=== PATIENT | female | born 1960 | race Caucasian/White ===

== ENCOUNTER 2017-05-07 13:28 | Emergency (ER) | payer MEDICARE, MEDICAID ==
--- NOTE | 2017-05-07 13:52 | EDM.PDOC ---
ED HPI GENERAL MEDICAL PROBLEM - General Chief Complaint: Cardiovascular Problem Stated Complaint: HIGH BLOOD PRESSURE Time Seen by Provider: 05/07/17 13:50 Source of Information: Reports: Patient - History of Present Illness INITIAL COMMENTS - FREE TEXT/NARRATIVE: Patient is ultimately here today for evaluation of dizziness which she states that going on several days. She describes it as an abnormal feeling, not so much of vertigo or lightheadedness feeling. She denies any chest pain or dyspnea. Denies N/V/D. Denies current headache, though does have history of migraine headaches. She denies any change in diet or stress in the past few days though she is fairly stressed that she is taking care of 3 children for a friend and apparently the mother is getting out of [facility]pc next month is why she moved to [place] from [place]. Patient reports that she does have chronic pain and arthritis, she travels back to see her pain provider in [place] monthly. She is currently on morphine 30 mg 4 times a day as well as hydrocodone 10-325mg 6 times daily for this. Patient states that she is on metoprolol for her blood pressure, denies any cardiac history of [place] or arrhythmias. She has not been taking her metoprolol for the past week and she has been out. Patient does not have a local PCP. Patient also reports a significant history of depression and anxiety and is requesting referrals to pain management and psychiatry. - Related Data Allergies Allergy/AdvReac Type Severity Reaction Status Date / Time eletriptan [From Relpax] Allergy Anaphylactic Verified 05/07/17 13:44 Shock ketorolac [From Toradol] Allergy Difficulty Verified 05/07/17 13:44 Breathing oxycodone Allergy Hives Verified 05/07/17 13:44 quetiapine [From Seroquel] Allergy Drowsiness Verified 05/07/17 13:44 sumatriptan [From Imitrex] Allergy Anaphylactic Verified 05/07/17 13:44 Shock tramadol Allergy Difficulty Verified 05/07/17 13:44 Breathing Home Meds: Home Meds Citalopram [Citalopram HBr] 40 mg PO DAILY 05/07/17 [History] ClonazePAM [KlonoPIN] 0.5 mg PO QID PRN 05/07/17 [History] Hydrocodone/Acetaminophen [[place] 10-325 Tablet] 1 each PO Q4H 05/07/17 [History] Metoprolol Succinate 100 mg PO DAILY 05/07/17 [History] Metoprolol Succinate [Toprol XL 100mg] 100 mg PO DAILY #30 tab.er 05/07/17 [Rx] Morphine Sulfate [Morphine Sulfate ER] 30 mg PO Q4H 05/07/17 [History] Past Medical History Cardiovascular History: Reports: Hypertension Gastrointestinal History: Reports: Chronic Diarrhea Musculoskeletal History: Reports: Arthritis, Back Pain, Chronic, Fracture, Osteoarthritis - Past Surgical History GI Surgical History: Reports: Colonoscopy Musculoskeletal Surgical History: Reports: ORIF Social & Family History - Tobacco Use Smoking Status *Q: Current Every Day Smoker Years of Tobacco use: 35 Packs/Tins Daily: 0.5 - Caffeine Use Caffeine Use: Reports: Soda - Recreational Drug Use Recreational Drug Use: No ED ROS GENERAL - Review of Systems Review Of Systems: See Below Constitutional: Reports: Fatigue. Denies: Fever, Chills, Malaise, Weakness, Decreased Appetite HEENT: Denies: Ear Pain, Sinus Problem, Vision Change Respiratory: Reports: No Symptoms Cardiovascular: Reports: No Symptoms GI/Abdominal: Reports: No Symptoms Musculoskeletal: Reports: Other (Chronic pain of multiple joints.) Skin: Reports: No Symptoms Neurological: Reports: Dizziness. Denies: Confusion, Headache, Numbness, Seizure, Tingling, Weakness Psychiatric: Reports: Anxiety, Depression ED EXAM, GENERAL - Physical Exam Exam: See Below General Appearance: No Apparent Distress, Lethargic, Other (Appears older than stated age. ) Eye Exam: Bilateral Eye: Other (Pinpoint pupils, not reactive to light. ) Ears: Normal External Exam, Normal Canal, Normal TMs Throat/Mouth: Normal Inspection, Normal Oropharynx Head: Atraumatic, Normocephalic Neck: Normal Inspection, Supple, Non-Tender Respiratory/Chest: No Respiratory Distress, Lungs Clear Cardiovascular: Normal Peripheral Pulses, Regular Rate, Rhythm, No Murmur Peripheral Pulses: 2+: Radial (L), Radial (R), Posterior Tibial (L), Posterior Tibial (R) GI/Abdominal: Normal Bowel Sounds, Soft Neurological: Oriented, No Motor/Sensory Deficits, Slow to Respond, Other ( Keeps eyes closed for majority of exam.) Psychiatric: Flat Affect. No: Normal Affect, Normal Mood Skin Exam: Warm, Dry, Intact Course - Vital Signs Last Recorded V/S: Last Vital Signs Temp 97.1 F 05/07/17 13:37 Pulse 93 05/07/17 13:37 Resp 17 05/07/17 13:37 BP 157/96 H 05/07/17 13:37 Pulse Ox 95 05/07/17 13:37 - Orders/Labs/Meds Orders: Active Orders 24 hr Category Date Time Status EKG 12 Lead [EKG Documentation Completion] [RC] STAT Care 05/07/17 14:11 Active DRUG SCREEN, URINE [URCHEM] Stat Lab 05/07/17 14:11 Ordered Labs: Laboratory Tests 05/07/17 05/07/17 Range/Units 14:44 14:44 WBC 6.92 (3.98-10.04) K/mm3 RBC 6.32 H (3.98-5.22) M/mm3 Hgb 16.9 H (11.2-15.7) gm/L Hct 49.1 H (34.1-44.9) % MCV 77.7 L (79.4-94.8) fl MCH 26.7 (25.6-32.2) pg MCHC 34.4 (32.2-35.5) g/dl RDW Std Deviation 51.5 H (36.4-46.3) fL Plt Count 105 L (182-369) K/mm3 MPV 10.1 (9.4-12.3) fl Neutrophils % (Manual) 51 (40-60) % Band Neutrophils % 0 (0-10) % Lymphocytes % (Manual) 40 (20-40) % Atypical Lymphs % 0 % Monocytes % (Manual) 8 (2-10) % Eosinophils % (Manual) 0 L (0.7-5.8) % Basophils % (Manual) 1 (0.1-1.2) Platelet Estimate Decreased Plt Morphology Comment Normal Poikilocytosis 1+ slight Anisocytosis 1+ slight Microcytosis 1+ slight Macrocytosis 1+ slight Tear Drop Cells 1+ slight RBC Morph Comment Abnormal Sodium 135 L (136-145) mEq/L Potassium 4.4 (3.5-5.1) mEq/L Chloride 98 (98-107) mEq/L Carbon Dioxide 27 (21-32) mEq/L Anion Gap 14.4 (5-15) BUN 17 (7-18) mg/dL Creatinine 1.1 H (0.55-1.02) mg/dL Est Cr Clr Drug Dosing 46.11 mL/min Estimated GFR (MDRD) 51 (>60) mL/min BUN/Creatinine Ratio 15.5 (14-18) Glucose 92 (74-106) mg/dL Calcium 9.3 (8.5-10.1) mg/dL Total Bilirubin 0.5 (0.2-1.0) mg/dL AST 57 H (15-37) U/L ALT 37 (14-59) U/L Alkaline Phosphatase 119 H (46-116) U/L Total Protein 7.9 (6.4-8.2) g/dl Albumin < 0.6 L (3.4-5.0) g/dl Globulin 7.3 gm/dL Albumin/Globulin Ratio 0.1 L (1-2) TSH 3rd Generation 2.200 (0.358-3.74) uIU/mL Ethyl Alcohol 0.00 (0.00) gm% Meds: Medications Discontinued Medications Generic Name Dose Route Start Last Admin Trade Name Deniq PRN Reason Stop Dose Admin Promethazine HCl 25 mg 05/07/17 16:50 Phenergan IM 05/07/17 16:51 ONETIME ONE - Re-Assessments/Exams Free Text/Narrative Re-Assessment/Exam: Patient with essentially normal neurologic exam. Her initial complaint was dizziness but this resolved after lying down for a few minutes. Patient is on a significant amount of necrotic pain medication on an outpatient basis and I suspect that this is contributing as well to his dizziness symptoms. Phenergan was given for her nausea. CBC demonstrates increased RBC and hemoglobin. AST 57, ALT 37 and alkaline phosphatase 119. TSH is normal at 2.20. Alcohol was negative. Drug screen is pending. Patient is requesting to be discharged, do not see indication to make her stay. Patient will need to establish with a PCP to further discuss her chronic pain management and fulfill her requested referrals. Will refill her metoprolol but not her pain medication as I do not feel this is indicated in the emergency room setting. 05/07/17 16:53 Departure - Departure Time of Disposition: 16:55 Disposition: Home, Self-Care 01 Condition: Fair Clinical Impression: Dizziness, Nausea Hypertension Qualifiers: Hypertension type: essential hypertension Qualified Code(s): I10 - Essential ( primary) hypertension Chronic pain Qualifiers: Chronic pain type: other chronic pain Qualified Code(s): G89.29 - Other chronic pain Prescriptions: Metoprolol Succinate [Toprol XL 100mg] 100 mg PO DAILY #30 tab.er Referrals: PCP,Not In Area [Primary Care Provider] - Forms: ED Department Discharge - My Orders Last 24 Hours: My Active Orders 05/07/17 14:11 EKG 12 Lead [EKG Documentation Completion] [RC] STAT DRUG SCREEN, URINE [URCHEM] Stat - Assessment/Plan Last 24 Hours: My Active Orders 05/07/17 14:11 EKG 12 Lead [EKG Documentation Completion] [RC] STAT DRUG SCREEN, URINE [URCHEM] Stat
[2017-05-07] MEDS ORDERED: Promethazine 25 MG/ML SDV IM ONE (16:50)
== END 2017-05-07 17:08 | disposition home or self-care (01) ==
LOC: JD.ED 13:28
DX: I10 Essential (primary) hypertension (principal); G89.29 Other chronic pain; M19.90 Unspecified osteoarthritis, unspecified site; Z79.899 Other long term (current) drug therapy; Z88.6 Allergy status to analgesic agent; Z88.8 Allergy status to other drugs, medicaments and biological substances; Z88.5 Allergy status to narcotic agent
CPT/HCPCS: 36415; 80053; 84443; 85025; 93005; 96372; 99284; G0480; J2550; 99283

== ENCOUNTER 2018-05-22 07:52 | Day surgery (SDC) | payer MEDICARE, MEDICAID ==
[~2018-05-22 07:52] MED LIST: Lactated Ringers 1,000 ML IV SCH; Lidocaine 1% 4 ML ONE; Lidocaine 1%/Sod Bicarbonate in NS 8.4% 1 ML Syringe IDERM PRN; Midazolam 1 MG/ML 2 ML SDV ONE; Propofol 200 MG/20 ML SDV ONE; Sodium Chloride 0.9% 10 ML Syringe FLUSH PRN; fentaNYL 100 MCG/2 ML SDV ONE
--- NOTE | 2018-05-22 08:21 | PCM.PREANE ---
Preanesthetic Assessment - Anesthesia/Transfusion/Family Hx Anesthesia History: Prior Anesthesia Without Reaction Family History of Anesthesia Reaction: No Transfusion History: No Prior Transfusion(s) - Review of Systems General: Fatigue Pulmonary: Cough Cardiovascular: Dyspnea on Exertion Gastrointestinal: Nausea Neurological: No Symptoms Other: Reports: Easy Bruising, Anxiety - Physical Assessment NPO Status Date: 05/21/18 NPO Status Time: 00:00 Pulse: 66 O2 Sat by Pulse Oximetry: 97 Respiratory Rate: 16 Blood Pressure: 160/73 Temperature: 36.3 C Height: 1.6 m Weight: 73.21 kg ASA Class: 2 Mental Status: Alert & Oriented x3 Dentition: Reports: Dentures (to), Missing Tooth/Teeth Thyro-Mental Finger Breadths: 3 Mouth Opening Finger Breadths: 3 ROM/Head Extension: Full Lungs: Clear to Auscultation (right), Wheezing (left lower) Cardiovascular: Regular Rate, Regular Rhythm - Allergies Allergies/Adverse Reactions: Allergies Allergy/AdvReac Type Severity Reaction Status Date / Time ketorolac [From Toradol] Allergy Difficulty Verified 05/21/18 12:16 Breathing oxycodone Allergy Hives Verified 05/21/18 12:16 sumatriptan [From Imitrex] Allergy Anaphylactic Verified 05/21/18 12:16 Shock tramadol Allergy Difficulty Verified 05/21/18 12:16 Breathing quetiapine [From Seroquel] AdvReac Drowsiness Verified 05/21/18 12:16 - Anesthesia Plan Pre-Op Medication Ordered: Beta Leisa Beta Leisa: Metoprolol Med Last Dose Date: 05/21/18 Med Last Dose Time: 16:00 - Acknowledgements Anesthesia Type Planned: MAC Pt an Appropriate Candidate for the Planned Anesthesia: Yes Alternatives and Risks of Anesthesia Discussed w Pt/Guardian: Yes Pt/Guardian Understands and Agrees with Anesthesia Plan: Yes PreAnesthesia Questionnaire HEENT History: Reports: Impaired Vision Other HEENT History: wears contacts Cardiovascular History: Reports: Hypertension, Pulmonary Hypertension Respiratory History: Reports: Pneumonia, Recurrent Other Respiratory History: Unable to verify/obtain. Pt intubated on arrival Gastrointestinal History: Reports: Colon Polyp Other Gastrointestinal History: Unable to verify/obtain. Pt intubated on arrival Genitourinary History: Reports: Pyelonephritis Other Genitourinary History: Unable to verify/obtain. Pt intubated on arrival DRIVER EXAMINER History: Reports: Endometriosis, Other OB/BYN History: Unable to verify/obtain. Pt intubated on arrival Musculoskeletal History: Reports: Back Pain, Chronic, Fracture, Osteoarthritis Other Musculoskeletal History: Unable to verify/obtain. Pt intubated on arrival Neurological History: Reports: Migraines Other Neuro History: Unable to verify/obtain. Pt intubated on arrival Psychiatric History: Reports: Addiction, Anxiety, Depression Other Psychiatric History: Unable to verify/obtain. Pt intubated on arrival Endocrine/Metabolic History: Reports: Other (See Below) Other Endocrine/Metabolic History: "lump" on thyroid. Hematologic History: Reports: Blood Transfusion(s) Other Hematologic History: Unable to verify/obtain. Pt intubated on arrival. Pt states that she has hepatitis but not sure what kind Other Immunologic History: Unable to verify/obtain. Pt intubated on arrival Oncologic (Cancer) History: Reports: Uterine Other Oncologic History: "pre cancer." Other Dermatologic History: Unable to verify/obtain. Pt intubated on arrival - Infectious Disease History Infectious Disease History: Reports: Hepatitis C - Past Surgical History HEENT Surgical History: Reports: Oral Surgery Other HEENT Surgeries/Procedures: Unable to verify/obtain. Pt intubated on arrival GI Surgical History: Reports: Colonoscopy, EGD Female Surgical History: Reports: Hysterectomy, Salpingo-Oophorectomy Musculoskeletal Surgical History: Reports: Arthroscopic Knee, ORIF - SUBSTANCE USE Smoking Status *Q: Current Every Day Smoker Tobacco Use Within Last Twelve Months: Cigarettes Second Hand Smoke Exposure: Yes Days Per Week of Alcohol Use: 0 Number of Drinks Per Day: 0 Total Drinks Per Week: 0 Recreational Drug Use History: No - HOME MEDS Home Medications: Home Meds Metoprolol Succinate [Toprol XL 100mg] 100 mg PO DAILY #30 tab.er 05/07/17 [Rx] Escitalopram [Lexapro] 20 mg PO BID 01/11/18 [History] Aspirin 81 mg PO DAILY 02/09/18 [History] Lisinopril 40 mg PO DAILY 02/09/18 [History] lamoTRIgine [Lamotrigine] 200 mg PO DAILY 02/09/18 [History] Pregabalin [Lyrica] 150 mg PO TID 04/14/18 [History] amLODIPine Besylate [Amlodipine Besylate] 10 mg PO DAILY 04/14/18 [History] clonazePAM [Clonazepam] 0 mg PO BID PRN 04/14/18 [History] hydroCHLOROthiazide [Hydrochlorothiazide] 25 mg PO DAILY 04/14/18 [History] - CURRENT (IN HOUSE) MEDS Current Meds: Current Medications Lactated Ringer's (Ringers, Lactated) 1,000 mls @ 125 mls/hr IV ASDIRECTED LOU Stop: 05/22/18 23:00 Lidocaine/Sodium Bicarbonate (Buffered Lidocaine 1% In Ns 8.4%) 0.25 ml IDERM ONETIME PRN PRN Reason: Prior to IV Start Stop: 05/22/18 18:00 Sodium Chloride (Saline Flush) 10 ml FLUSH ASDIRECTED PRN PRN Reason: Keep Vein Open Stop: 05/22/18 18:00 Discontinued Medications Fentanyl (Sublimaze) Confirm Administered Dose 100 mcg .ROUTE .STK-MED ONE Stop: 05/22/18 07:18 Lactated Ringer's (Ringers, Lactated) 1,000 mls @ 125 mls/hr IV ASDIRECTED [facility] Stop: 05/15/18 23:00 Lidocaine HCl (Xylocaine-Mpf 1%) Confirm Administered Dose 4 mls @ as directed .ROUTE .STK-MED ONE Stop: 05/22/18 07:17 Lidocaine/Sodium Bicarbonate (Buffered Lidocaine 1% In Ns 8.4%) 0.25 ml IDERM ONETIME PRN PRN Reason: Prior to IV Start Stop: 05/15/18 18:00 Midazolam HCl (Versed 1 Mg/Ml) Confirm Administered Dose 2 mg .ROUTE .STK-MED ONE Stop: 05/22/18 07:18 Propofol (Diprivan 20 Ml) Confirm Administered Dose 400 mg .ROUTE .STK-MED ONE Stop: 05/22/18 07:18 Sodium Chloride (Saline Flush) 10 ml FLUSH ASDIRECTED PRN PRN Reason: Keep Vein Open Stop: 05/15/18 18:00
[2018-05-22] MEDS ORDERED: Albuterol 0.083% 2.5 MG/3 ML Neb Soln ONE (08:39)
[2018-05-22] MEDS ORDERED: Albuterol 0.083% 2.5 MG/3 ML Neb Soln NEB ONE (08:45)
[2018-05-22] MEDS ORDERED: Propofol 200 MG/20 ML SDV ONE ×6 (09:03→09:49)
--- NOTE | 2018-05-22 10:08 | PCM.OPNOTE ---
- General Post-Op/Procedure Note Date of Surgery/Procedure: 05/22/18 Operative Procedure(s): EGD and colonoscopy Findings: 1. Diffuse gastritis with multiple punctate areas of bleeding, no large active bleeding areas 2. Irregular mucosa in the esophagus 3. Melanosis coli 4. Colon polyps Pre Op Diagnosis: Melena and history of colon cancer Post-Op Diagnosis: Same Anesthesia Technique: MAC Primary Surgeon: Zoe Silva Anesthesia Provider: Meme Cid Pathology: 1. Antrum biopsy 2. Mid- esophageal mucosal biopsy 3. Transverse colon polyp 2 4. Transverse colon polyp not resected 5. Descending colon polyp, incomplete retrieval 6. Sigmoid colon polyp Fluid Replacement, Intraop: 1,000 Output, Urine Amount: 0 EBL in mLs: 0 Complications: none apparent Condition: Good Free Text/Narrative:: Very large doses of propofol needed for sedation, incomplete relaxation despite medications given. Marginal prep
--- NOTE | 2018-05-22 10:09 | PCM.PRNOTE ---
- Free Text/Narrative Note: Operative Report Date of Procedure: May 22, 2018 Pre Op Diagnosis: . Melena and history of colon cancer Post-Op Diagnosis: . Same Operative Procedures: 1. EGD with biopsy 2. Colonoscopy to the cecum with biopsy Primary Surgeon: Zoe Silva MD Anesthesia Provider: . Meme Cid CRNA Anesthesia Technique: MAC IV Fluid Replacement, Intraop: 1000cc crystalloid Output, Urine Amount: 0cc EBL: 0cc Findings: 1. Diffuse gastritis with multiple punctate areas of bleeding, no large active bleeding areas 2. Irregular mucosa in the esophagus 3. Melanosis coli 4. Colon polyps Specimens: 1. Antrum biopsy 2. Mid- esophageal mucosal biopsy 3. Transverse colon polyp 2 4. Descending colon polyp not resected 5. Descending colon polyp, incomplete retrieval 6. Sigmoid colon polyp Drain/Tubes: None Indication: The patient is an 57-year-old lady who presented to the clinic with complaint of abdominal pain. She did report a history of some melena. She also reports a history of a very large amount of polyps noted in the colon. She gives some history of colon cancer. She has not had a surveillance colonoscopy in several years. . The patient was consented for a diagnostic EGD and colonoscopy. Risks of bleeding, and perforation were discussed, and the patient agreed to the risks and wished to proceed. Description of the procedure: The patient was taken back to the endoscopy suite, and placed in the left lateral decubitus position. Local anesthetic to the oropharynx was administered , and a bite block was placed. The patient was sedated with MAC anesthesia. The Olympus video endoscope was inserted into the oropharynx and guided under direct vision into the esophagus, stomach, and duodenum. The gastric antrum was inspected and jumbo cold biopsy forceps were used to take tissue samples for H. pylori. The duodenal bulb and second portion of the duodenum were unremarkable. The scope was withdrawn to the stomach and retroflexed. There was increased bilious fluid within the stomach. There were multiple punctate areas of bleeding that were self-limited noted throughout the fundus and body of the stomach. There was diffuse gastritis, no erosions or ulcers were noted. The scope was withdrawn to the esophagus. The Z-line appeared regular, without evidence of hiatal hernia. No Barretts esophagus changes were noted. The endoscope was then withdrawn while paying attention to the esophageal mucosa. There were some esophageal irregularities in the mid esophagus that appeared polypoid. This is biopsied using the jumbo cold biopsy forceps. Blood loss was minimal. The arytenoid tissues appeared erythematous and edematous when the scope was being withdrawn, insistent with GERD findings Next, anorectal examination was performed. No lesions, masses or hemorrhoids were noted externally or on palpation, only the presence of some anal skin tags. The scope was placed into the rectum and advanced to cecum. There was mild tortuosity of the colon, requiring abdominal pressure. The scope was difficult due to significant looping of the scope within the colon as well as need for. Large amounts of sedation. The patient's colonic mucosa was still not relaxed throughout the procedure due to her high sedation requirements. In addition, the patient had a marginal colon prep with some large pieces of particulate matter within the colon. The marginal prep, combined with other factors made the colonoscopy unsuccessful complete resection of polyps. Upon reaching the cecum, and the patients cecum was entered. The ileocecal valve was well visualized and the appendiceal orifice identified. At this point, the scope was slowly withdrawn, paying attention to the mucosa. The patient had marginal bowel prep, 70 % of the mucosa was visible. Melanosis coli was seen in the sigmoid and descending colon. She also had scattered diverticula throughout the colon. A 8 mm semi-pedunculated polyp was seen in the transverse colon, this was removed in a piecemeal fashion using jumbo cold biopsy forceps. The entire polyp was resected and retrieved. There was an additional 3 mm semi-pedunculated polyp in the transverse colon that was fully resected using jumbo cold biopsy forceps. In the descending colon a 5 mm semi- pedunculated polyp was seen. Incomplete resection was achieved with cold jumbo cold biopsy forceps. Due to the residual stool and large pieces of particulate matter, combined with her colonic spasm, we could not completely resect the polyp. A flat 2 mm polyp was also seen in this area that could not be resected due to these factors. An additional 4 mm semi-pedunculated polyp was noted. This was retrieved using jumbo cold biopsy forceps. In the rectum, scope was retroflexed and some hemorrhoidal tissue was noted, but this was obscured due to pool of feculent fluid. The scope was placed back in the lumen and excess air was aspirated. The scope was removed. The patient tolerated the procedure very well. Complications: None apparent Condition: The patient was transported to PACU in stable condition. Zoe Silva MD General Surgery
--- NOTE | 2018-05-22 10:22 | PCM48HPAN ---
Post Anesthesia Note - EVALUATION WITHIN 48HRS OF ANESTHETIC Vital Signs in Normal Range: Yes Patient Participated in Evaluation: Yes Respiratory Function Stable: Yes Airway Patent: Yes Cardiovascular Function Stable: Yes Hydration Status Stable: Yes Pain Control Satisfactory: Yes Nausea and Vomiting Control Satisfactory: Yes Mental Status Recovered: Yes Pulse Rate: 79 SaO2: 98 Resp Rate: 15 Temperature: 97.8 F Blood Pressure: 133/66
== END 2018-05-22 11:12 | disposition home or self-care (01) ==
LOC: JD.SDS 07:52
PROVIDERS: ATTEND Surgery
DX: K29.71 Gastritis, unspecified, with bleeding (principal); D12.3 Benign neoplasm of transverse colon; D12.4 Benign neoplasm of descending colon; D12.5 Benign neoplasm of sigmoid colon; K57.31 Diverticulosis of large intestine without perforation or abscess with bleeding; K63.89 Other specified diseases of intestine; K64.4 Residual hemorrhoidal skin tags; I10 Essential (primary) hypertension; F17.210 Nicotine dependence, cigarettes, uncomplicated; Z86.010 Personal history of colon polyps; Z79.899 Other long term (current) drug therapy
CPT/HCPCS: 43239; 45380; J2001; J2250; J2704; J3010; J7120; 00813